=== PATIENT | male | born 1990 | race African-American/Black ===

== ENCOUNTER 2021-01-27 06:22 | Emergency (ER) | payer BC, SELFPAY ==
[2021-01-27 06:24] VITALS: BP 114/72; PULSE 106; RESP 24; TEMP 37.2; O2SAT 98; BMI 19.8
--- NOTE | 2021-01-27 06:40 | EKG12_ITS ---
Test Reason : CP Blood Pressure : / mmHG Vent. Rate : 091 BPM Atrial Rate : 091 BPM P-R Int : 122 ms QRS Dur : 086 ms QT Int : 322 ms P-R-T Axes : 073 102 070 degrees QTc Int : 396 ms Normal sinus rhythm with sinus arrhythmia Normal ECG Confirmed by ANIRUDH VALLECILLO, AKIL ([id number]), fashion editor JERMAINE BAHENA ([id number]) on 01/29/2021 9:15:31 AM Referred By: DOLORES Confirmed By:AKIL OLEARY MD
--- NOTE | 2021-01-27 06:40 | RAD_ITS ---
STUDY: X-RAY CHEST REASON FOR EXAM: Male, 31 years old. Chest pain. TECHNIQUE: PA and lateral COMPARISON: None. FINDINGS: No apparent pneumothorax, pneumonia, pleural effusion, or edema. Hyperinflation. Cardiac silhouette, kan and mediastinal contours are within normal limits. No acute osseous abnormality. No evidence of free air under the diaphragm. RAD/Chest PA and Lateral IMPRESSION: Hyperinflation which might be physiologic in the setting of deep inspiration. Underlying asthma can also appear this way. Electronically Signed: Chun Paul MD at 7:31 EDT Tel , Service support ,
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
[2021-01-27] MEDS: Ketorolac 15 MG/ML Vial IV (07:37)
[2021-01-27 07:44] VITALS: BP 110/77; PULSE 87; RESP 16; O2SAT 98
== END 2021-01-27 07:49 | disposition home or self-care (01) ==
PROVIDERS: Emergency Provider Emergency Medicine
DX: S29.011A Strain of muscle and tendon of front wall of thorax, initial encounter (principal); F17.210 Nicotine dependence, cigarettes, uncomplicated; X50.9XXA Other and unspecified overexertion or strenuous movements or postures, initial encounter
CPT/HCPCS: 71046; 93005; 96374; 99283; A4216